=== PATIENT | female | born 1990 | race Caucasian/White ===

== ENCOUNTER 2018-07-28 13:09 | Emergency (ER) | payer BC, MEDICAID ==
[~2018-07-28] VITALS: Ht 160 cm; Wt 49.3 kg
[~2018-07-28 13:09] MED LIST: IBUP-1223 PO
[2018-07-28] MEDS ORDERED: ONDANSETRON ODT 4 MG PO ONE (14:00)
--- NOTE | 2018-07-28 14:07 | NUR ---
COUGH,SORE THROAT & NAUSEA X 2 DAYS, DENIES FEVER. dENIES MEDICAL HX. DAILY SMOKER. APPEARS CONGESTED, CLEAR LUNGS, VSS
[2018-07-28] MEDS ORDERED: ACETAMINOPHEN 500 MG TABLET ONE (14:17)
[2018-07-28] MEDS ORDERED: ONDANSETRON ODT 4 MG ONE (14:17)
--- NOTE | 2018-07-28 14:23 | NUR ---
RADIOLOGY AT BEDSIDE MEDICATED PER EMAR FOR FEVER/NAUSEA VITALS STABLE ON POX UPDATED ON POC
[2018-07-28] MEDS ORDERED: ACETAMINOPHEN 500 MG TABLET PO ONE (14:30)
[2018-07-28 14:34] LABS: RAPID INFLUENZA A Negative (Negative); RAPID INFLUENZA B Negative (Negative)
[2018-07-28] MEDS ORDERED: DEXAMETHASONE 4 MG TABLET PO ONE (16:00)
[2018-07-28] MEDS ORDERED: DEXAMETHASONE 4 MG TABLET ONE (16:06)
[2018-07-28 16:16] VITALS: BP 116/57
== END 2018-07-28 16:15 | disposition home or self-care (01) ==
LOC: ED 13:48
DX: B34.9 Viral infection, unspecified (principal); F41.1 Generalized anxiety disorder
CPT/HCPCS: 71046; 87081; 87400; 87880; 99284; Q0162

== ENCOUNTER 2019-01-21 13:37 | Emergency (ER) | payer MEDICAID ==
[~2019-01-21] VITALS: Ht 160 cm; Wt 51.9 kg
--- NOTE | 2019-01-21 14:28 | NUR ---
PT AMBULATORY WITH STEADY GAIT FROM LOBBY TO ROOM.
--- NOTE | 2019-01-21 14:42 | NUR ---
PT HERE WITH C/O BILATERAL LOWER QUADRANT ABDOMINAL PAIN, CRAMPING, AND ABNORMAL VAGINAL ODOR. PT STATES SHE CAN'T GET INTO A NEW LAUNDR[employer] WORKER [place]. PT AAO X 4, NAD, ROOM AIR, CALL LIGHT WITHIN REACH. DRESSED IN GOWN AND ATTACHED TO MONITOR.
--- NOTE | 2019-01-21 14:46 | NUR ---
TASK RN: RECIEVED BEDSIDE REPORT FROM TERESE GIBBONS.
[2019-01-21 14:49] LABS: MICROSCOPIC AUTO
--- NOTE | 2019-01-21 15:11 | NUR ---
TASK RN: PT BEING TAKEN TO ULTRASOUND
--- NOTE | 2019-01-21 15:13 | NUR ---
BEDSIDE REPORT TO TERESE GIBBONS.
[2019-01-21 15:23] LABS: BASOPHILS # (AUTO) 0.03 x10^3/uL (0-0.1); BASOPHILS % (AUTO) 1 % (0-1); EOSINOPHILS # (AUTO) 0.14 x10^3/uL (0-0.4); EOSINOPHILS % (AUTO) 2 % (1-7); LYMPHOCYTES # (AUTO) 1.71 x10^3/uL (1-3.4); LYMPHOCYTES % (AUTO) 29 % (22-44); MD NO; MEAN CORPUSCULAR HEMOGLOBIN 30.4 pg (27.0-34.8); MEAN CORPUSCULAR HGB CONC 33.7 g/dL (32.4-35.8); MEAN CORPUSCULAR VOLUME 90.1 fL (80-100); MEAN PLATELET VOLUME 8.1 fL (7.4-10.4); MONOCYTES # (AUTO) 0.39 x10^3/uL (0.2-0.8); MONOCYTES % (AUTO) 6 % (2-9); NEUTROPHILS # (AUTO) 3.75 x10^3/uL (1.8-6.8); NEUTROPHILS % (AUTO) 62 % (42-75); PLATELET COUNT 328 x10^3/uL (130-400); RED BLOOD COUNT 4.75 x10^6/uL (3.82-5.3); RED CELL DISTRIBUTION WIDTH 12.8 % (9.6-15.2)
[2019-01-21 15:29] LABS: ALBUMIN 4.1 g/dL (3.4-5.0); ANION GAP 3 mmol/L (5-15); CALCIUM 9.2 mg/dL (8.5-10.1); CHLORIDE 108 mmol/L (98-107); CREATININE 0.85 mg/dL (0.55-1.02)
--- NOTE | 2019-01-21 15:54 | NUR ---
AT BEDSIDE FOR PELVIC EXAM.
[2019-01-21 15:55] VITALS: BP 122/84
--- NOTE | 2019-01-21 16:19 | NUR ---
ALL RESULTS BACK AT THIS TIME, CHART UP FOR RECHECK.
[2019-01-21 16:38] LABS: CLUE CELLS NONE SEEN (NONE SEEN)
[2019-01-21 16:39] LABS: WET PREP WBCS FEW (FEW)
--- NOTE | 2019-01-21 16:55 | NUR ---
THIS RN CALLED TO ROOM, PT VERY FRUSTRATED WITH LACK OF ANSWERS AND THAT ER STAFF HAS NOT FOUND HER AN P Addendum: 01/21/19 at 1655 by DAISY THIS RN CALLED TO ROOM, PT VERY FRUSTRATED WITH LACK OF ANSWERS AND THAT ER STAFF HAS NOT FOUND HER AN OB THAT IS ACCEPTING HER INSURANCE AND NEW PATIENTS. PT EDUCATION ON ROLE OF EMERGENCY ROOM AND ROLE OF EMERGENCY ROOM STAFF. PT VERBALIZED UNDERSTANDING.
--- NOTE | 2019-01-21 16:57 | NUR ---
Patient/Caregiver given discharge instructions and they have confirmed that they understand the instructions. Patient ambulatory with steady gait.
== END 2019-01-21 17:16 | disposition home or self-care (01) ==
LOC: ED 17:10
DX: N83.02 Follicular cyst of left ovary (principal); N83.01 Follicular cyst of right ovary
CPT/HCPCS: 36415; 76830; 80048; 81001; 82040; 84702; 85025; 87210; 87491; 87591; 87808; 99284

== ENCOUNTER → 2019-05-01 | Outpatient (CLI) | payer OTHER ==
[~2019-05-01] MED LIST changes: +HYDR-3237 PO
[2019-05-01 15:13] LABS: BASOPHILS # (AUTO) 0.04 x10^3/uL (0-0.1); BASOPHILS % (AUTO) 0 % (0-1); EOSINOPHILS # (AUTO) 0.11 x10^3/uL (0-0.4); EOSINOPHILS % (AUTO) 1 % (1-7); LYMPHOCYTES # (AUTO) 3.03 x10^3/uL (1-3.4); LYMPHOCYTES % (AUTO) 35 % (22-44); MD NO; MEAN CORPUSCULAR HEMOGLOBIN 29.6 pg (27.0-34.8); MEAN CORPUSCULAR HGB CONC 34.2 g/dL (32.4-35.8); MEAN CORPUSCULAR VOLUME 86.5 fL (80-100); MEAN PLATELET VOLUME 8.7 fL (7.4-10.4); MONOCYTES # (AUTO) 0.74 x10^3/uL (0.2-0.8); MONOCYTES % (AUTO) 9 % (2-9); NEUTROPHILS # (AUTO) 4.78 x10^3/uL (1.8-6.8); NEUTROPHILS % (AUTO) 55 % (42-75); PLATELET COUNT 335 x10^3/uL (130-400); RED BLOOD COUNT 5.06 x10^6/uL (3.82-5.3); RED CELL DISTRIBUTION WIDTH 12.4 % (9.6-15.2)
[2019-05-01 15:18] LABS: ANION GAP 7 mmol/L (5-15); CALCIUM 9.3 mg/dL (8.5-10.1); CHLORIDE 102 mmol/L (98-107); CREATININE 0.84 mg/dL (0.55-1.02)
== END | disposition home or self-care (01) ==
LOC: STAR 13:49
PROVIDERS: ATTEND Obstetrics & Gynecology
DX: Z01.818 Encounter for other preprocedural examination (principal); R10.2 Pelvic and perineal pain; G89.29 Other chronic pain
CPT/HCPCS: 36415; 80048; 81025; 85025

== ENCOUNTER 2019-05-09 11:36 | Day surgery (SDC) | payer OTHER, MEDICAID ==
[~2019-05-09] VITALS: Ht 160 cm; Wt 48.9 kg
[2019-05-09] MEDS ORDERED: LACTATED RINGERS 1,000 ML IV SCH (11:56)
[2019-05-09 12:02] VITALS: BP 105/72
[2019-05-09 12:25] LABS: HCG UR SG 1.018 (1.003-1.030)
[2019-05-09] MEDS ORDERED: ACETAMINOPHEN 500 MG TABLET PO ONE (13:00)
[2019-05-09] MEDS ORDERED: GABAPENTIN 300 MG CAPSULE PO ONE (13:00)
[2019-05-09] MEDS ORDERED: FENTANYL PF 100 MCG/2ML ONE ×3 (13:03→14:43)
[2019-05-09] MEDS ORDERED: MIDAZOLAM 1 MG/ML, 2ML ONE (13:03)
[2019-05-09] MEDS ORDERED: NEOSTIGMINE 1 MG/ML, 10ML ONE (13:05)
[2019-05-09] MEDS ORDERED: GLYCOPYRROLATE 0.2MG/1ML, 5ML ONE (13:05)
[2019-05-09] MEDS ORDERED: DEXAMETHASONE 4 MG/ML, 1ML ONE (13:05)
[2019-05-09] MEDS ORDERED: SUCCINYLCHOLINE 20 MG/ML, 10ML ONE (13:05)
[2019-05-09] MEDS ORDERED: ONDANSETRON 2MG/ML, 2ML ONE (13:05)
[2019-05-09] MEDS ORDERED: CEFAZOLIN 1,000 MG ONE (13:05)
[2019-05-09] MEDS ORDERED: PROPOFOL 10 MG/ML, 20ML ONE (13:05)
[2019-05-09] MEDS ORDERED: ROCURONIUM 10MG/ML,5ML ONE (13:05)
[2019-05-09] MEDS ORDERED: BUPIVACAINE/PF 0.25% ONE (13:23)
[2019-05-09] MEDS ORDERED: KETOROLAC 30 MG/1 ML ONE (13:56)
[2019-05-09] MEDS ORDERED: LIDOCAINE-MPF 2% ,5ML ONE (13:56)
[2019-05-09] MEDS ORDERED: LABETALOL 5MG/ML, 20ML IV PRN (14:30)
[2019-05-09] MEDS ORDERED: hydrALAzine 20 MG/ML, 1ML IV PRN (14:30)
[2019-05-09] MEDS ORDERED: ONDANSETRON 2MG/ML, 2ML IV PRN (14:30)
[2019-05-09] MEDS ORDERED: EPHEDRINE 50 MG/ML, 1ML IVPush PRN (14:30)
[2019-05-09] MEDS ORDERED: OXYcodone 5 MG/5 ML ORAL.SOL UDC PO PRN (14:30)
[2019-05-09] MEDS ORDERED: PROMETHAZINE 25 MG/ML, 1ML IV PRN (14:30)
[2019-05-09] MEDS ORDERED: MEPERIDINE/PF 25MG/ML,1ML IVPush PRN (14:30)
[2019-05-09] MEDS: FENTANYL PF 100 MCG/2ML IV PRN ×2 (14:42→14:50)
[2019-05-09] MEDS ORDERED: OXYcodone 5 MG/5 ML ORAL.SOL UDC ONE (14:45)
[2019-05-09] MEDS ORDERED: HYDROmorphone 1 MG/ML, 1ML INJ ONE (15:11)
[2019-05-09] MEDS: HYDROmorphone 2 MG/ML, 1ML IVPush PRN ×2 (15:14→15:26)
== END 2019-05-09 17:10 | disposition home or self-care (01) ==
LOC: OUT 11:36
PROVIDERS: ATTEND Obstetrics & Gynecology
DX: G89.29 Other chronic pain (principal); R10.2 Pelvic and perineal pain; N80.3 Endometriosis of pelvic peritoneum
CPT/HCPCS: 58662; 81025; 88305; J0330; J0690; J1100; J1170; J1885; J2250; J2405; J2704; J2710; J3010; J3490; J7120

== ENCOUNTER 2019-05-11 12:51 | Emergency (ER) | payer OTHER, MEDICAID ==
[~2019-05-11] VITALS: Ht 160 cm; Wt 50.1 kg
[2019-05-11] MEDS ORDERED: SODIUM CHLORIDE 0.9% 1,000 ML IV ONE (13:14)
[2019-05-11] MEDS ORDERED: HYDROmorphone 1 MG/ML, 1ML INJ ONE ×2 (13:22→15:24)
[2019-05-11] MEDS ORDERED: ONDANSETRON 2MG/ML, 2ML ONE (13:22)
[2019-05-11] MEDS: HYDROmorphone 2 MG/ML, 1ML IVPush PRN ×2 (13:25→15:27)
[2019-05-11] MEDS ORDERED: SODIUM CHLORIDE FLUSH 10ML SYR IVF ONE (13:30)
[2019-05-11] MEDS ORDERED: ONDANSETRON 2MG/ML, 2ML IVPush ONE (13:30)
--- NOTE | 2019-05-11 13:30 | NUR ---
PT HAS CO ABDOMINAL PAIN AND CRYING. PT HAD LAP SX FOR ENDOMETRIOSIS ON MONDAY. WAS TOLD SHE WILL HAVE PAIN, BUT HER PAIN WAS UNRELIEVED, WAS TOLD TO COME TO ED. PT STATES "IT FEELS LIKE THE CO2 GAS HAS NOT REALEASED" INCISIONS ARE CDI. MD AT BEDSIDE FOR EXAM. IV ESTABLISHED, MEDICATED PER ORDERS. PT CALMED DOWN
[2019-05-11 13:38] LABS: BASOPHILS # (AUTO) 0.04 x10^3/uL (0-0.1); BASOPHILS % (AUTO) 0 % (0-1); EOSINOPHILS # (AUTO) 0.16 x10^3/uL (0-0.4); EOSINOPHILS % (AUTO) 2 % (1-7); LYMPHOCYTES # (AUTO) 2.48 x10^3/uL (1-3.4); LYMPHOCYTES % (AUTO) 24 % (22-44); MD NO; MEAN CORPUSCULAR HEMOGLOBIN 29.3 pg (27.0-34.8); MEAN CORPUSCULAR HGB CONC 33.4 g/dL (32.4-35.8); MEAN CORPUSCULAR VOLUME 87.7 fL (80-100); MEAN PLATELET VOLUME 8.3 fL (7.4-10.4); MONOCYTES # (AUTO) 0.74 x10^3/uL (0.2-0.8); MONOCYTES % (AUTO) 7 % (2-9); NEUTROPHILS # (AUTO) 6.85 x10^3/uL (1.8-6.8); NEUTROPHILS % (AUTO) 67 % (42-75); PLATELET COUNT 350 x10^3/uL (130-400); RED BLOOD COUNT 4.87 x10^6/uL (3.82-5.3); RED CELL DISTRIBUTION WIDTH 12.8 % (9.6-15.2)
[2019-05-11 13:41] LABS: ALANINE AMINOTRANSFERASE 15 U/L (12-78); ALBUMIN 3.9 g/dL (3.4-5.0); ANION GAP 6 mmol/L (5-15); CHLORIDE 109 mmol/L (98-107); CREATININE 0.83 mg/dL (0.55-1.02)
[2019-05-11 13:46] LABS: ALKALINE PHOSPHATASE 44 U/L (45-117); BILIRUBIN,TOTAL 0.9 mg/dL (0.2-1.0); TOTAL PROTEIN 7.3 g/dL (6.4-8.2)
--- NOTE | 2019-05-11 14:23 | NUR ---
PT AMBULATED TO BATHROOM W STEADY GATE. PT STILL HAS PAIN IN ABDOMEN.
[2019-05-11 14:51] LABS: MICROSCOPIC AUTO
[2019-05-11 14:53] LABS: CULTURE INDICATED? YES
[2019-05-11 15:28] VITALS: BP 111/71
--- NOTE | 2019-05-11 15:28 | NUR ---
MEDICATED FOR PAIN, VSS, PARENTS AT BEDSIDE. WAITING FOR CT RESULTS
[2019-05-11] MEDS ORDERED: OMNIPAQUE 350 MG/ML, 100ML BOTTLE ONE (15:43)
--- NOTE | 2019-05-11 16:14 | NUR ---
BREAK RN: PT VISITING WITH FAMILY AT BEDSIDE. NO ACUTE DISTRESS NOTED. CALL LIGHT IN PLACE. WILL CONTINUE TO MONITOR WHILE PRIMARY RN IS ON BREAK.
--- NOTE | 2019-05-11 17:30 | NUR ---
PT RESTING, PLAYING ON PHONE, NO NEEDS AT THIS TIME
--- NOTE | 2019-05-11 18:10 | NUR ---
Patient/Caregiver given discharge instructions and they have confirmed that they understand the instructions. Patient ambulatory with steady gait.
== END 2019-05-11 18:34 ==
LOC: ED 14:18
DX: N30.00 Acute cystitis without hematuria (principal); R10.84 Generalized abdominal pain; F17.200 Nicotine dependence, unspecified, uncomplicated
CPT/HCPCS: 36415; 74177; 80053; 81001; 83690; 84703; 85025; 87086; 96374; 96375; 96376; 99285; J1170; J2405; J7030; Q9967

== ENCOUNTER 2020-06-16 17:12 | Emergency (ER) | payer MEDICAID, OTHER ==
[~2020-06-16] VITALS: Ht 160 cm; Wt 44.8 kg
[2020-06-16 17:27] VITALS: BP 116/62
--- NOTE | 2020-06-16 17:27 | NUR ---
STRAWBERRY GROWER: PT PROVIDED W/ ICEPACK TO USE IN LOBBY, EDUCATED TO ELEVATE.
--- NOTE | 2020-06-16 18:46 | NUR ---
8TH GRADE TEACHER: Patient given discharge instructions and they have confirmed that they understand the instructions. Patient ambulatory with steady gait. RESP EVEN AND UNLABORED, MARILYN.
== END 2020-06-16 18:47 | disposition home or self-care (01) ==
LOC: ED 18:15
DX: S63.501A Unspecified sprain of right wrist, initial encounter (principal); S60.211A Contusion of right wrist, initial encounter; W01.0XXA Fall on same level from slipping, tripping and stumbling without subsequent striking against object, initial encounter; Y93.89 Activity, other specified; Y92.89 Other specified places as the place of occurrence of the external cause; Y99.8 Other external cause status
CPT/HCPCS: 29125; 99284

== ENCOUNTER 2020-06-28 15:17 | Emergency (ER) | payer MEDICAID ==
[~2020-06-28] VITALS: Ht 160 cm; Wt 44.1 kg
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
[2020-06-28 16:02] VITALS: BP 128/78
--- NOTE | 2020-06-28 16:13 | NUR ---
PT DENIED TAKING TRAMADOL. SAYS IT MAKES HER JITTERY. DOES NOT WANT TO TAKE ANY IBUPROFEN WELL.
--- NOTE | 2020-06-28 16:56 | NUR ---
PT MEDICATED PER MAR
== END 2020-06-28 17:12 | disposition home or self-care (01) ==
LOC: ED 17:00
DX: S60.221A Contusion of right hand, initial encounter (principal); F17.200 Nicotine dependence, unspecified, uncomplicated; X58.XXXA Exposure to other specified factors, initial encounter; Y93.89 Activity, other specified; Y92.009 Unspecified place in unspecified non-institutional (private) residence as the place of occurrence of the external cause; Y99.8 Other external cause status
CPT/HCPCS: 99283

== ENCOUNTER → 2020-12-24 | Outpatient (CLI) | payer MEDICAID | END | disposition home or self-care (01) | LOC: STAR 08:00 | PROVIDERS: ATTEND Surgery Plastic and Reconstructive Surgery | DX: Z01.812 Encounter for preprocedural laboratory examination (principal); Z20.822 Contact with and (suspected) exposure to COVID-19 ==